=== PATIENT | female | born 1990 | race Caucasian/White ===

== ENCOUNTER 2017-04-07 17:56 | Emergency (ER) | payer MEDICAID, OTHER ==
[2017-04-07] MEDS ORDERED: NITROGLYCERIN 0.4 MG TAB SL PRN (18:00)
[2017-04-07 18:05] LABS: BASOPHILS % (AUTO) 0 % (0-3); EOSINOPHILS % (AUTO) 0 % (0-9); HEMATOCRIT 32 % (35-47); MEAN CORPUSCULAR HGB CONC 34.6 gm/dl (32.0-36.0); MONOCYTES % (AUTO) 4.8 % (0-12); NEUTROPHILS % (AUTO) 71.8 % (37-80)
[2017-04-07 18:06] LABS: MEAN CORPUSCULAR VOLUME 81 fL (81-99)
[2017-04-07] MEDS ORDERED: ALUMINUM/MAGNESIUM 30 ML SUS PO ONE (18:24)
[2017-04-07] MEDS ORDERED: LIDOCAINE HCL 2% (VISCOUS) 20 ML SOL MT ONE (18:24)
[2017-04-07 18:27] LABS: CALCIUM 8.7 mg/dl (8.5-10.1); GLOM FILT RATE 90 mL/min (>60); POTASSIUM 3.6 mMol/L (3.5-5.1); SODIUM 138 mMol/L (136-145)
[2017-04-07] MEDS ORDERED: ALUMINUM/MAGNESIUM 30 ML SUS ONE (18:35)
[2017-04-07] MEDS ORDERED: LIDOCAINE HCL 2% (VISCOUS) 20 ML SOL ONE (18:35)
[2017-04-07 19:20] VITALS: RESP 24
[2017-04-07 19:31] VITALS: BP 112/81; PULSE 88; TEMP 99.2; O2SAT 96
== END 2017-04-07 18:50 | disposition short-term general hospital (02) ==
LOC: ED 17:56
DX: O26.893 Other specified pregnancy related conditions, third trimester (principal); R07.9 Chest pain, unspecified; Z3A.31 31 weeks gestation of pregnancy
CPT/HCPCS: 36415; 80048; 84484; 85025; 85378; 93005; 99283

== ENCOUNTER 2019-01-29 11:01 | Emergency (ER) | payer OTHER | END 2019-01-29 13:00 | disposition home or self-care (01) | LOC: ED 11:01 ==